=== PATIENT | female | born 1990 | race Caucasian/White ===

== ENCOUNTER 2017-03-12 04:13 | Emergency (ER) | payer MEDICAID ==
[2017-03-12 04:19] VITALS: PULSE 91; RESP 16; TEMP 98.1; O2SAT 93
[2017-03-12] MEDS ORDERED: PHENYLEPHRINE 0.25% NASAL 15 ML SPRAY ONE (04:31)
[2017-03-12] MEDS ORDERED: SILVER NITRATE APPLICATOR 1 APPL TP ONE (04:32)
[2017-03-12] MEDS ORDERED: OXYMETAZOLINE 30 ML NASAL SPRAY ONE (04:32)
[2017-03-12] MEDS ORDERED: OXYMETAZOLINE 30 ML NASAL SPRAY EACHNARE ONE (04:40)
--- NOTE | 2017-03-12 04:49 | EDPHY ---
H & P Stated Complaint: Nose bleed X 2 hours Time Seen by Provider: 03/12/17 04:38 HPI/ROS: HPI The patient presents with nose bleed which has been present for the last 2 hours though now has mostly subsided. The patient had been out drinking alcohol tonight. She returned home and went to sleep. She woke up about 2 hours ago with blood on her pillow and was concerned. She had continuous bleeding from her right nostril without any clots and was concerned so comes into the emergency room. She has no prior history of nose bleeds. She denies any trauma. She does not have any recent URIs. She is not on any blood thinners.. REVIEW OF SYSTEMS Constitutional: No fever, no chills. Eyes: No discharge. ENT: No sore throat. Cardiovascular: No chest pain, no palpitations. Respiratory: No cough, no shortness of breath. Gastrointestinal: No abdominal pain, no vomiting. Genitourinary: No hematuria. Musculoskeletal: No back pain. Skin: No rashes. Neurological: No headache. PMHx: Healthy Soc Hx: Alcohol use PHYSICAL General Appearance: Alert, no distress Eyes: Pupils equal and round no pallor or injection ENT, Mouth: Mucous membranes moist, no active bleeding from her nose, no areas of bleeding visualized Respiratory: There are no retractions, lungs are clear to auscultation Cardiovascular: Regular rate and rhythm Gastrointestinal: Abdomen is soft and non-tender, no masses, bowel sounds normal Neurological: A&O, moves all extremities Skin: Warm and dry, no rashes Musculoskeletal: Neck is supple non tender Extremities: symmetrical, full range of motion Psychiatric: Patient is oriented X 3, there is no agitation Source: Patient Exam Limitations: No limitations - Personal History LMP (Females 10-55): Irregular Current Tetanus/Diphtheria Vaccine: Yes Current Tetanus Diphtheria and Acellular Pertussis (TDAP): Yes - Medical/Surgical History Hx Asthma: No Hx Chronic Respiratory Disease: No Hx Diabetes: No Hx Cardiac Disease: No Hx Renal Disease: No Hx Cirrhosis: No Hx Alcoholism: No Hx HIV/AIDS: No Hx Splenectomy or Spleen Trauma: No - Social History Smoking Status: Never smoked Constitutional: Initial Vital Signs Temperature (C) 36.7 C 03/12/17 04:17 Heart Rate 91 03/12/17 04:17 Respiratory Rate 16 03/12/17 04:17 O2 Sat (%) 93 03/12/17 04:17 Allergies/Adverse Reactions: codeine Allergy (Verified 03/12/17 04:17) Home Medications: Medication Instructions Recorded NK [No Known Home Meds] 03/12/17 Medical Decision Making Differential Diagnosis: This is a 26-year-old healthy female who presents with epistaxis for the last 2 hours, now resolved. The patient was given Afrin and nasal clamps were applied. She had no ongoing bleeding here. Exam is unremarkable for any areas of active bleeding. Differential diagnosis includes bleeding from Kiesselbach's plexus, posterior epistaxis, nasal trauma. She will be discharged with nasal clamps and Afrin. She return precautions were discussed. - Data Points Medications Given: Discontinued Medications Oxymetazoline HCl (Afrin Nasal [place]) 2 sprays [facility] EDNOW ONE Stop: 03/12/17 04:41 Last Admin: 03/12/17 04:42 Dose: 2 puffs Departure - Departure Disposition: Home, Routine, Self-Care Clinical Impression: Acute anterior epistaxis, Alcohol intoxication Condition: Good Instructions: Nosebleed (ED) Referrals: [facility],. [Clinic] - As per Instructions
== END 2017-03-12 05:00 | disposition home or self-care (01) ==
DX: R03.0 Elevated blood-pressure reading, without diagnosis of hypertension (principal); F10.129 Alcohol abuse with intoxication, unspecified

== ENCOUNTER 2017-03-23 00:27 | Emergency (ER) | payer MEDICAID ==
[2017-03-23 00:38] VITALS: BP 129/76; PULSE 88; RESP 18; TEMP 97.9; O2SAT 96
--- NOTE | 2017-03-23 00:51 | EDPHY ---
H & P Time Seen by Provider: 03/23/17 00:42 HPI/ROS: CHIEF COMPLAINT: Foreign Body in Vagina - tampon fell apart. HISTORY OF PRESENT ILLNESS: she placed a tampon approximately 3-4 hours ago. She wants to move it however it fell apart in pieces. She feels that there is a such a piece still up there that needs to come out. She feels well otherwise. Vis-a-vis she is having menstrual. She feels lower abdominal cramping as she typically does no more no last. Also the mother blood flow has been with the same as previously. Of note is that approximately 1 years ago she came off double due to cervical cancer and has had her uncomfortable cramping resume when she started having periods again She was driven here by rather as she was drinking heavily earlier tonight. Fever none Chills none Rigors none abdominal pain yes, her bilateral suprapubic typical lower abdominal discomfort associated with her menses. Exposure: REVIEW OF SYSTEMS: Gastrointestinal: No vomiting, no abdominal pain. 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 Smoking Status: Never smoked Physical Exam: External Genitalia: normal no lesions Vaginal Canal: no lesions mild blood noted from the office, no tissue . Foreign body present in the vagina. Removed with ring forceps successfully. Cervix: Cervical bleeding. No signs of discharge Constitutional: Initial Vital Signs Temperature (C) 36.6 C 03/23/17 00:29 Heart Rate 88 03/23/17 00:29 Respiratory Rate 18 03/23/17 00:29 Blood Pressure 129/76 H 03/23/17 00:29 O2 Sat (%) 96 03/23/17 00:29 O2 Delivery Mode Room Air Allergies/Adverse Reactions: codeine Allergy (Verified 03/12/17 04:17) Home Medications: Medication Instructions Recorded NK [No Known Home Meds] 03/12/17 Medical Decision Making Procedures: Foreign body removed with ring forceps. No anesthesia required patient tolerated pelvic exam and foreign body removal well. The speculum exam was reintroduced to be certain that there is no other tampon material present Differential Diagnosis: Diagnostic considerations include, but are not limited to, the following: Foreign body in the vagina Departure - Departure Disposition: Home, Routine, Self-Care Clinical Impression: Foreign body in vagina Qualifiers: Encounter type: initial encounter Qualified Code(s): T19.2XXA - Foreign body in vulva and vagina, initial encounter Condition: Good Instructions: Vaginal Foreign Body (ED) Additional Instructions: follow up with your md as needed Referrals: Patient,NotPresent [Primary Care Provider] - As per Instructions
== END 2017-03-23 00:54 | disposition home or self-care (01) ==
LOC: CED 00:27
DX: T19.2XXA Foreign body in vulva and vagina, initial encounter (principal); X58.XXXA Exposure to other specified factors, initial encounter